=== PATIENT | female | born 1945 | race Caucasian/White ===

== ENCOUNTER → 2017-09-21 | Outpatient (CLI) | payer MEDICARE, OTHER ==
[~2017-09-21] MED LIST: ALLO100T70 PO; AMLO-96 PO; ATOR10TA24 PO; BENA5TAB32 PO; BENAZEPRIL HCL; CALC-18; CHOL10005 PO; CHOL200074 PO; CIPR-214 PO; CIPR-215 PO; CIPR-344 PO; CIPR500S3 PO; CLIN300C99 PO; DICL-190 PO; DIPH-1 PO; FAMO-67 PO; FAMO20TA28 PO; HYDR-385 PO; IBUP600T22 PO; LOSA100T67 PO; LOSA50TA72 PO; PANT40TA65 PO; PHEN200T32 PO; PRED-1 PO; PRED-420 PO; ROS10 FT; ROSU20TA13 PO; SAXA5TAB4 PO; SITA1TBM7 PO; TRIA15OI20 TP
[2017-09-21 08:37] LABS: PLATELET COUNT, AUTOMATED 302 K/uL (150-450)
== END ==
LOC: LAB 07:58
PROVIDERS: ATTEND Internal Medicine
DX: E78.00 Pure hypercholesterolemia, unspecified (principal); E11.9 Type 2 diabetes mellitus without complications; M10.9 Gout, unspecified; I10 Essential (primary) hypertension; R79.9 Abnormal finding of blood chemistry, unspecified; E55.9 Vitamin D deficiency, unspecified
CPT/HCPCS: 36415; 82040; 82247; 82306; 82310; 82374; 82435; 82465; 82565; 82947; 83036; 83718; 83970; 84075; 84132; 84155; 84295; 84443; 84450; 84460; 84478; 84520; 84550; 85025

== ENCOUNTER → 2017-10-30 | Outpatient (CLI) | payer MEDICARE, OTHER ==
[~2017-10-30] MED LIST changes: -CLIN300C99 PO
== END ==
LOC: LAB 09:05
PROVIDERS: ATTEND Internal Medicine
DX: M10.9 Gout, unspecified (principal); E83.52 Hypercalcemia
CPT/HCPCS: 36415; 82040; 82247; 82310; 82374; 82435; 82565; 82947; 84075; 84132; 84155; 84295; 84450; 84460; 84520; 84550

== ENCOUNTER → 2017-11-01 | Outpatient (CLI) | payer MEDICARE, OTHER ==
[~2017-11-01] MED LIST changes: +CLIN300C99 PO
[2017-11-01 17:33] LABS: PLATELET COUNT, AUTOMATED 268 K/uL (150-450)
== END ==
LOC: LAB 17:01
PROVIDERS: ATTEND Internal Medicine
DX: E83.52 Hypercalcemia (principal); M10.9 Gout, unspecified; L03.90 Cellulitis, unspecified
CPT/HCPCS: 82040; 82247; 82310; 82374; 82435; 82565; 82947; 84075; 84132; 84155; 84295; 84450; 84460; 84520; 84550; 85025; 85651; 86140

== ENCOUNTER → 2018-05-28 | Outpatient (CLI) | payer MEDICARE, OTHER ==
[~2018-05-28] MED LIST changes: +AMLO-111 PO; +AMLO-113 PO; -AMLO-96 PO; +INDO-21 PO; -LOSA100T67 PO; +LOSA100T69 PO; -LOSA50TA72 PO; +LOSA50TA74 PO; -ROSU20TA13 PO; +ROSU20TA5 PO
--- NOTE | 2018-05-28 14:49 | EKG ---
FACILITY: [facility] PATIENT NAME: JAD COOPER : [id number] MR: [id number] V: [id number] EXAM DATE: ORDERING PHYSICIAN: DELFINA ZIEGLER TECHNOLOGIST: MADAN Test Reason : IRREG HB Blood Pressure : / mmHG Vent. Rate : 087 BPM Atrial Rate : 087 BPM P-R Int : 162 ms QRS Dur : 104 ms QT Int : 378 ms P-R-T Axes : 053 -07 038 degrees QTc Int : 454 ms Normal sinus rhythm Normal ECG When compared with ECG of 06-MAR-2015 10:59, No significant change was found Confirmed by Bertrand Mcfarland ([id number]) on 05/28/2018 6:33:50 PM Referred By: Confirmed By:Bertrand Hussein
== END ==
LOC: RESP 13:20
PROVIDERS: ATTEND Internal Medicine
DX: Z02.9 Encounter for administrative examinations, unspecified (principal)

== ENCOUNTER → 2018-05-30 | Outpatient (CLI) | payer MEDICARE, OTHER ==
[2018-05-30 10:41] LABS: PLATELET COUNT, AUTOMATED 324 K/uL (150-450)
== END ==
LOC: LAB 10:12
PROVIDERS: ATTEND Internal Medicine
DX: E11.9 Type 2 diabetes mellitus without complications (principal); M10.9 Gout, unspecified; E83.52 Hypercalcemia; I49.9 Cardiac arrhythmia, unspecified; I10 Essential (primary) hypertension
CPT/HCPCS: 36415; 81001; 82040; 82043; 82247; 82306; 82310; 82330; 82374; 82435; 82465; 82565; 82652; 82947; 83036; 83718; 83970; 84075; 84132; 84155; 84160; 84165; 84295; 84443; 84450; 84460; 84478; 84520; 84550; 85025

== ENCOUNTER → 2019-01-22 | Outpatient (CLI) | payer MEDICARE, OTHER ==
[~2019-01-22] MED LIST changes: -AMLO-111 PO; -AMLO-113 PO; +AMLO-125 PO; +AMLO-127 PO; -LOSA100T69 PO; +LOSA100T75 PO; -LOSA50TA74 PO; +LOSA50TA80 PO; -ROS10 FT; +ROSU10TA FT
[2019-01-22 09:35] LABS: PLATELET COUNT, AUTOMATED 286 K/uL (150-450)
== END ==
LOC: LAB 09:09
PROVIDERS: ATTEND Internal Medicine
DX: E83.52 Hypercalcemia (principal); M10.9 Gout, unspecified; E11.9 Type 2 diabetes mellitus without complications; I10 Essential (primary) hypertension; E55.9 Vitamin D deficiency, unspecified; E78.5 Hyperlipidemia, unspecified; Z79.899 Other long term (current) drug therapy
CPT/HCPCS: 36415; 81001; 82040; 82247; 82306; 82310; 82374; 82435; 82465; 82565; 82607; 82746; 82947; 83036; 83718; 84075; 84132; 84155; 84295; 84439; 84443; 84450; 84460; 84478; 84520; 84550; 85025

== ENCOUNTER → 2019-01-29 | Outpatient (CLI) | payer MEDICARE, OTHER ==
[~2019-01-29] MED LIST changes: +ROSU20TA24 PO
--- NOTE | 2019-01-29 17:32 | RADIOLOGY IMAGING REPORT ---
FACILITY: [facility] PATIENT NAME: Fadia Welch : 1945 MR: [id number] V: [id number] EXAM DATE: ORDERING PHYSICIAN: DELFINA ZIEGLER TECHNOLOGIST: Location: [facility] Patient: Fadia Welch : 1945 Visit/Account:[id number] Date of Sevice: 01/29/2019 DEXA Scan 01/29/2019 1:00 PM HISTORY: Postmenopausal. Screening for osteoporosis. Comparison: None. LUMBAR SPINE: The bone mineral density (BMD) measured from L1-L4 correlates with a Z-score of -0.1 and a T-score of -1.2 which is mildly osteopenic as defined by the World Health Organization. The corresponding risk of fracture in the lumbar spine is increased 2-3 times compared with a young adult reference populat ion. FOREARM: The bone mineral density (BMD) measured in the ULTRADISTAL Left radius, where trabecular bone predomi nates, correlates with a Z-score of 0.8 and a T-score of -1.2 which is mildly osteopenic as defined b y the World Health Organization. The corresponding risk of fracture in the distal forearm is increas ed 2-3 times compared with a young adult reference population. The bone mineral density (BMD) in the MIDSHAFT of the forearm, where cortical bone predominates, sridevi elates with a Z-score of 0.6 and a T-score of -1.4 which is mildly osteopenic as defined by the World Health Organization. The corresponding risk of fracture in the midshaft of the forearm is increased 2-3 times compared with a young adult reference population. Impression: 1. Lumbar spine: Mild osteopenia. 2. Left Forearm: Mild osteopenia. The next DEXA scan of this patient should include the following sites: Lumbar spine and the left fore arm.. FRAX? WHO Fracture Risk Assessment Tool link: <http://www.shef.ac.uk/FRAX/tool.jsp?locationValue=9> PLEASE NOTE: 1) The World Health Organization defines low BMD as follows: T-score Normal > -1 Osteopenia < -1 and > -2.5 Osteoporosis < -2.5 without fractures Established osteoporosis < -2.5 with fractures 2) In general, you may wish to consider: Diagnosis Treatment Follow-up DEXA Normal BMD Prevention 2-3 years Osteopenia Prevention/therapy 1-2 years Osteoporosis Therapy Yearly 3) Fracture risk estimated from the T-score is more accurate for vertebral fractures (often spontane ous) than for hip fractures. Report Dictated By: Milan Caraballo MD at 01/29/2019 5:25 PM Report E-Signed By: Milan Caraballo MD at 01/29/2019 5:27 PM WSN:[id number]
== END ==
LOC: RAD 00:54
PROVIDERS: ATTEND Internal Medicine
DX: Z13.820 Encounter for screening for osteoporosis (principal); M85.89 Other specified disorders of bone density and structure, multiple sites
CPT/HCPCS: 77080